=== PATIENT | female | born 1990 | race Caucasian/White ===

== ENCOUNTER 2016-07-15 | Emergency (ER) | payer OTHER | END 2016-07-15 17:46 | disposition home or self-care (01) | DX: H66.001 Acute suppurative otitis media without spontaneous rupture of ear drum, right ear (principal) ==

== ENCOUNTER 2016-10-05 03:52 | Emergency (ER) | payer OTHER ==
[2016-10-05 04:00] VITALS: BP 124/64
--- NOTE | 2016-10-05 04:02 | ED Physician Documentation ---
PD HPI MHE - Stated complaint Stated Complaint: MHE/ETOH - History obtained from History obtained from: Patient, EMS - History of Present Illness Primary symptom: Other (states that she is not homocidal or suicidal, but wants "someone to talk to". States that her made her a counseling appointment , but doesn't know when it is scheduled.) Timing - onset: How many weeks ago (several) Pain level max: 0 Pain level now: 0 Contributing factors: Other (states increased stress at home. States feels safe at home.) Similar symptoms before: Diagnosis (bipolar) Recently seen: Not recently seen - Additional information Additional information: Patient is a 25-year-old female who was brought in by the [facility] for reported suicidal ideation. She denies being suicidal. Denies ever stating she was suicidal. States that she was arguing with her laurita and he stated that she was suicidal. Review of Systems Ten Systems: 10 systems reviewed and negative Constitutional: denies: Fever, Chills Throat: denies: Sore throat Cardiac: denies: Chest pain / pressure Respiratory: denies: Cough GI: denies: Abdominal Pain, Nausea, Vomiting, Diarrhea Skin: denies: Rash Musculoskeletal: denies: Neck pain, Back pain Neurologic: denies: Focal weakness, Numbness, Confused, Altered mental status, Headache Psychiatric: denies: Depressed, Suicidal, Homicidal, Hallucinations, Delusions, Anxiety, Insomnia PD PAST MEDICAL HISTORY - Past Medical History Past Medical History: Yes Psych: Bipolar disorder - Present Medications Home Medications: Ambulatory Orders Medication Instructions Recorded Confirmed No Known Home Medications [No 10/05/16 10/05/16 Known Home Medications] - Allergies Allergies/Adverse Reactions: Allergies Allergy/AdvReac Type Severity Reaction Status Date / Time amoxicillin Allergy Anaphylaxis Verified 10/05/16 03:59 - Living Situation Living Situation: reports: With family Living Arrangement: reports: At home - Social History Does the pt smoke?: No Smoking Status: Never smoker Does the pt drink ETOH?: Yes - Family History Family history: reports: Non contributory PD ED PE NORMAL - Vitals Vital signs reviewed: Yes - General General: Alert and oriented X 3, No acute distress, Well developed/nourished - HEENT HEENT: PERRL, Moist mucous membranes - Neck Neck: Supple, no meningeal sign - Cardiac Cardiac: RRR - Respiratory Respiratory: No respiratory distress, Clear bilaterally - Abdomen Abdomen: Soft, Non tender - Derm Derm: Warm and dry - Neuro Neuro: Alert and oriented X 3 - Psych Psych: Normal mood, Normal affect Results - Vitals Vitals: Vital Signs - 24 hr 10/05/16 03:53 Temperature 36.8 C Heart Rate 104 H Respiratory 17 Rate Blood Pressure 124/64 O2 Saturation 98 Oxygen O2 Source Room air PD MEDICAL DECISION MAKING - ED course Complexity details: considered differential, d/w patient ED course: Patient is a 25-year-old female who presents to the emergency department with reported suicidal ideation during a fight tonight. She is adamantly denying any suicidal ideation and stating that she never said she was suicidal. The patient's called and stated that he does believe that she said she was suicidal, but is not sure that she actually said that. States no plan and it was during an argument. The [employer] police were also contacted and they state that they never heard her say she was suicidal. [employer] also never heard her state that she was suicidal. She is able to contract for safety here. Also discussed with Chief [place] who states that no one ever heard her voice suicidal ideations. Pt states that she has 2 children, 2 and 8 years old and just wants to spend mother's day with them at home. Patient counseled regarding signs and symptoms for which I believe and urgent re-evaluation would be necessary. Patient with good understanding of and agreement to plan and is comfortable going home at this time. Patient left the ED by taxi for home. Alert , oriented, not intoxicated. Cooperative and calm. This document was made in part using voice recognition software. While efforts are made to proofread this document, sound alike and grammatical errors may occur. Departure - Departure Disposition: Home, Self Care Clinical Impression: Encounter for medical screening examination Condition: Good Follow-Up: your,doctor within 3 days [Other] Comments: Return if you worsen. There is a 24 hour crisis line available if you need to talk to someone. Crisis Line
== END 2016-10-05 05:15 | disposition home or self-care (01) ==
LOC: ED 03:52
DX: Z00.00 Encounter for general adult medical examination without abnormal findings (principal)
CPT/HCPCS: 99283

== ENCOUNTER 2017-02-22 21:48 | Outpatient (CLI) | payer OTHER | END 2017-02-22 21:49 | disposition EMS.NT | LOC: EMS 21:48 | PROVIDERS: ATTEND Surgery | DX: R41.82 Altered mental status, unspecified (principal); R46.89 Other symptoms and signs involving appearance and behavior ==

== ENCOUNTER 2017-02-22 22:27 | Emergency (ER) | payer OTHER ==
[2017-02-22] MEDS ORDERED: LORazepam 2 MG/ML SYRINGE IM STA (22:40)
[2017-02-22] MEDS ORDERED: LORazepam 2 MG/ML SYRINGE IVP STA (22:47)
[2017-02-22] MEDS ORDERED: LORazepam 2 MG/ML SYRINGE ONE (22:47)
[2017-02-22 22:54] LABS: BASOPHILS % (AUTO) 0.6 %; EOSINOPHILS # (AUTO) 0.2 10^3/uL (0.0-0.7); EOSINOPHILS % (AUTO) 3.4 %; HCT - HEMATOCRIT 40.9 % (37.0-47.0); HGB - HEMOGLOBIN 13.9 g/dL (12.0-16.0); LYMPHOCYTES # (AUTO) 3.7 10^3/uL (1.5-3.5); LYMPHOCYTES % (AUTO) 55.8 %; MEAN CORPUSCULAR HEMOGLOBIN 32.4 pg (27.0-31.0); MEAN CORPUSCULAR HGB CONC 34.1 g/dL (32.0-36.0); MEAN PLATELET VOLUME 8.6 fL (7.9-10.8); MONOCYTES # (AUTO) 0.4 10^3/uL (0.0-1.0); MONOCYTES % (AUTO) 5.6 %; NEUTROPHILS # (AUTO) 2.3 10^3/uL (1.5-6.6); NEUTROPHILS % (AUTO) 34.6 %; RED BLOOD COUNT 4.31 10^6/uL (4.20-5.40); RED CELL DISTRIBUTION WIDTH 12.9 % (12.0-15.0); UNCORRECTED WHITE BLOOD COUNT 6.6 x10^3/uL; WHITE BLOOD COUNT 6.6 x10^3/uL (4.8-10.8)
[2017-02-22] MEDS ORDERED: SODIUM CHLORIDE 0.9% 1,000 ML IV ONE (22:59)
[2017-02-22 23:07] LABS: BILIRUBIN,URINE NEGATIVE (NEGATIVE)
[2017-02-22 23:11] LABS: ALBUMIN/GLOBULIN RATIO 1.6 (1.0-2.2); BILIRUBIN,TOTAL 0.5 mg/dL (0.2-1.0); BUN - BLOOD UREA NITROGEN 11 mg/dL (6-20); CALCIUM 8.7 mg/dL (8.5-10.3); CARBON DIOXIDE - CO2 23 mmol/L (21-32); CHLORIDE 107 mmol/L (101-111); CREATININE 0.7 mg/dL (0.4-1.0); GFR - MDRD 100 (>89); GLUCOSE 107 mg/dL (70-100); LIPASE 25 U/L (22-51); POTASSIUM 3.4 mmol/L (3.5-5.0); SALICYLATE < 6.0 mg/dL; SODIUM 140 mmol/L (135-145); TOTAL PROTEIN 7.4 g/dL (6.7-8.2)
[2017-02-22 23:13] LABS: ACETAMINOPHEN < 10 ug/mL (10-30)
[2017-02-22 23:25] LABS: UA CHARGE (STRIP ONLY) YES; UR CULTURE IF IND NOT INDICATED
[2017-02-22 23:27] LABS: HCG UR QUAL NEGATIVE
--- NOTE | 2017-02-23 01:38 | ED Physician Documentation ---
PD HPI MHE - Stated complaint Stated Complaint: MHE - Chief complaint Chief Complaint: MHE - History obtained from History obtained from: EMS, Caregiver - History of Present Illness Primary symptom: Aggressive behavior Timing - onset: Today Contributing factors: Family, Sig other Similar symptoms before: Work up / diagnostics Recently seen: Not recently seen - Additional information Additional information: Patient is a 26 year old female brought in by ems for agitation. Acccording to ems reports that states that an hour earlier the patient was acting normally then she just started acting crazy and aggressive so he called ems. He denies knowing if any drugs or alcohol were involved. Upon initial evaluation in the emergency department patient is altered and aggressive. Review of Systems Unable to obtain: Intoxicated PD PAST MEDICAL HISTORY - Past Medical History Past Medical History: Yes Respiratory: Asthma Psych: Bipolar disorder - Past Surgical History Past Surgical History: No - Present Medications Home Medications: Ambulatory Orders Medication Instructions Recorded Confirmed No Known Home Medications [No 10/05/16 10/05/16 Known Home Medications] - Allergies Allergies/Adverse Reactions: Allergies Allergy/AdvReac Type Severity Reaction Status Date / Time amoxicillin Allergy Anaphylaxis Verified 02/22/17 22:35 - Social History Does the pt smoke?: No Smoking Status: Never smoker Does the pt drink ETOH?: Yes Does the pt have substance abuse?: No - Immunizations Immunizations are current?: Yes - POLST Patient has POLST: No PD ED PE NORMAL - Vitals Vital signs reviewed: Yes - General General: Well developed/nourished - HEENT HEENT: Atraumatic, Moist mucous membranes - Neck Neck: Supple, no meningeal sign - Cardiac Cardiac: RRR, No murmur - Respiratory Respiratory: No respiratory distress, Clear bilaterally - Abdomen Abdomen: Soft, Non tender, Non distended - Derm Derm: Normal color, Warm and dry, No rash - Extremities Extremities: No deformity, Normal ROM s pain - Neuro Neuro: No motor deficit PD ED PE EXPANDED - General General: No acute distress, Unresponsive - HEENT HEENT: PERRL - GCS Eye Opening: To Pain Motor: Withdraws to Pain Verbal: Confused Total: 10 Results - Vitals Vitals: Vital Signs - 24 hr 02/22/17 02/22/17 02/23/17 22:28 22:56 00:15 Temperature 36 C L Heart Rate 112 H 95 83 Respiratory 20 18 16 Rate Blood Pressure 93/47 L 90/51 L O2 Saturation 98 95 98 02/23/17 02/23/17 02/23/17 00:39 03:00 05:09 Temperature Heart Rate 83 88 77 Respiratory 16 16 16 Rate Blood Pressure 86/50 L 96/62 O2 Saturation 100 99 99 Oxygen O2 Source Room air - Labs Labs: Laboratory Tests 02/22/17 02/22/17 02/22/17 22:35 22:35 22:40 WBC 6.6 RBC 4.31 Hgb 13.9 Hct 40.9 MCV 95.0 MCH 32.4 H MCHC 34.1 RDW 12.9 Plt Count 209 MPV 8.6 Neut # 2.3 Lymph # 3.7 H [place] # 0.4 Eos # 0.2 Baso # 0.0 Absolute Nucleated RBC 0.00 Nucleated RBC % 0.0 Sodium Potassium Chloride Carbon Dioxide Anion Gap BUN Creatinine Estimated GFR (MDRD) Glucose Lactic Acid Calcium Total Bilirubin AST ALT Alkaline Phosphatase Total Creatine Kinase Total Protein Albumin Globulin Albumin/Globulin Ratio Lipase TSH Urine Color YELLOW Urine Clarity CLEAR Urine pH 6.0 Ur Specific [place] <=1.005 <=1.005 Urine Protein NEGATIVE Urine Glucose (UA) NEGATIVE Urine Ketones NEGATIVE Urine Occult Blood NEGATIVE Urine Nitrite NEGATIVE Urine Bilirubin NEGATIVE Urine Urobilinogen 0.2 (NORMAL) Ur Leukocyte Esterase NEGATIVE Ur Microscopic Review NOT INDICATED Urine Culture Comments NOT INDICATED Urine HCG, Qual NEGATIVE Salicylates Urine Opiates Screen NEGATIVE Ur Oxycodone Screen NEGATIVE Urine Methadone Screen NEGATIVE Ur Propoxyphene Screen NEGATIVE Acetaminophen Ur Barbiturates Screen NEGATIVE Ur Tricyclics Screen NEGATIVE Ur Phencyclidine Scrn NEGATIVE Ur Amphetamine Screen NEGATIVE U Methamphetamines Scrn NEGATIVE U Benzodiazepines Scrn NEGATIVE Urine Cocaine Screen NEGATIVE U Cannabinoids Screen NEGATIVE Ethyl Alcohol 02/22/17 02/22/17 02/22/17 22:40 22:40 22:50 WBC RBC Hgb Hct MCV MCH MCHC RDW Plt Count MPV Neut # Lymph # [place] # Eos # Baso # Absolute Nucleated RBC Nucleated RBC % Sodium 140 Potassium 3.4 L Chloride 107 Carbon Dioxide 23 Anion Gap 10.0 BUN 11 Creatinine 0.7 Estimated GFR (MDRD) 100 Glucose 107 H Lactic Acid 1.5 Calcium 8.7 Total Bilirubin 0.5 AST 18 ALT 13 Alkaline Phosphatase 85 Total Creatine Kinase 115 Total Protein 7.4 Albumin 4.6 Globulin 2.8 Albumin/Globulin Ratio 1.6 Lipase 25 TSH 5.54 Urine Color Urine Clarity Urine pH Ur Specific [place] Urine Protein Urine Glucose (UA) Urine Ketones Urine Occult Blood Urine Nitrite Urine Bilirubin Urine Urobilinogen Ur Leukocyte Esterase Ur Microscopic Review Urine Culture Comments Urine HCG, Qual Salicylates < 6.0 Urine Opiates Screen Ur Oxycodone Screen Urine Methadone Screen Ur Propoxyphene Screen Acetaminophen < 10 L Ur Barbiturates Screen Ur Tricyclics Screen Ur Phencyclidine Scrn Ur Amphetamine Screen U Methamphetamines Scrn U Benzodiazepines Scrn Urine Cocaine Screen U Cannabinoids Screen Ethyl Alcohol 388.0 PD MEDICAL DECISION MAKING - ED course Complexity details: reviewed old records, reviewed results, re-evaluated patient , considered differential, d/w patient ED course: Patient was seen and examined at bedside. Patient report did not mention any tox involvement but patient appeared intoxicated and had to be placed in restraints. Urine was collected, labs were drawn patient was treated with a fluid bolus. patient was treated with ativan for aggressive behavior. When patient's labs came back she was found to have elevated etoh. Patient was treated with a second liter bolus. Patient was observed over night. In the morning patient had reached clinical sobriety. She was able to attend to conversation and ambulate without difficulty. Patient was able to call for a ride and was stable for discharge with outpatient follow up. Departure - Departure Disposition: 01 Home, Self Care Clinical Impression: Alcoholic intoxication Condition: Good Instructions: ED Alcohol Intoxication Follow-Up: primary,care provider [Other] - As Needed Comments: Your symptoms today were being caused by acute alcohol intoxication. You will need to be careful about the amount you drink. You should follow up with your doctor and develop a plan for cessation of heavy drinking. You may return to the emergency department at any time for new worsening or uncontrollable symptoms.
[2017-02-23 06:40] VITALS: BP 110/63
== END 2017-02-23 06:40 | disposition home or self-care (01) ==
LOC: EDUNIT# → ED 22:27
DX: F10.129 Alcohol abuse with intoxication, unspecified (principal); J45.909 Unspecified asthma, uncomplicated
CPT/HCPCS: 36415; 80053; 80306; 80307; 80320; 80329; 81003; 81025; 82550; 83605; 83690; 84443; 85025; 96361; 96374; 99284; 99285; J2060; 81001; 87086

== ENCOUNTER 2017-11-06 10:50 | Emergency (ER) | payer OTHER ==
[2017-11-06] MEDS ORDERED: IOPAMIDOL-300 100 ML VIAL IVP ONE ×2 (10:51→13:41)
[2017-11-06] MEDS ORDERED: DEXAMETHASONE 10 MG/ML VIAL PO STA (11:32)
[2017-11-06] MEDS ORDERED: CHERRY SYRUP 10 ML UDC PO ONE (11:47)
[2017-11-06] MEDS ORDERED: IOPAMIDOL-300 100 ML VIAL ONE (11:48)
[2017-11-06 12:26] LABS: CALCIUM 8.5 mg/dL (8.5-10.3); CREATININE 0.6 mg/dL (0.4-1.0)
[2017-11-06] MEDS ORDERED: POTASSIUM CHLORIDE 20 MEQ TABLET PO STA (12:26)
[2017-11-06] MEDS ORDERED: POTASSIUM CHLOR 10 MEQ/100 ML 10 MEQ/100 ML BAG IV ONE (12:27)
[2017-11-06 13:23] LABS: HCG UR QUAL NEGATIVE
--- NOTE | 2017-11-06 14:04 | ED Physician Documentation ---
PD HPI HEENT - Stated complaint Stated Complaint: THROAT PX/LUMP ON FACE - Chief complaint Chief Complaint: Heent - History obtained from History obtained from: Patient - History of Present Illness Timing - onset: How many days ago (8) Timing - details: Still present Location: Throat Associated symptoms: Fever, Swollen nodes Similar symptoms before: Has not had sx before - Additional information Additional information: The patient is a 27-year-old female who complains of sore throat for the past 8 days. She has noticed a "lump in her throat" and has had oropharyngeal drainage. She also reports fever, and mild epigastric discomfort. She denies cough, shortness of breath, headache, vomiting or chest pain. She has no history of similar symptoms in the past. Review of Systems Constitutional: reports: Fever, Fatigue Eyes: denies: Decreased vision Ears: denies: Ear pain, Tinnitus/ringing Nose: denies: Congestion Throat: reports: Sore throat, Swollen tonsils Cardiac: denies: Chest pain / pressure Respiratory: denies: Dyspnea, Cough GI: reports: Abdominal Pain (Mild epigastric). denies: Nausea, Vomiting : denies: Dysuria Skin: denies: Rash Musculoskeletal: reports: Neck pain (right sided). denies: Extremity pain Neurologic: denies: Headache PD PAST MEDICAL HISTORY - Past Medical History Past Medical History: Yes Respiratory: Asthma Endocrine/Autoimmune: None Psych: Bipolar disorder - Past Surgical History Past Surgical History: No - Present Medications Home Medications: Ambulatory Orders Medication Instructions Recorded Confirmed Clindamycin HCl [Clindamycin 150MG 300 mg PO QID #56 capsule 11/06/17 CAP] Ibuprofen 600 mg PO TID PRN #30 tablet 11/06/17 predniSONE [Prednisone] 20 mg PO DAILY #10 tablet 11/06/17 - Allergies Allergies/Adverse Reactions: Allergies Allergy/AdvReac Type Severity Reaction Status Date / Time amoxicillin Allergy Anaphylaxis Verified 02/22/17 22:35 - Social History Does the pt smoke?: No Smoking Status: Never smoker Does the pt drink ETOH?: Yes Does the pt have substance abuse?: No - Immunizations Immunizations are current?: Yes - POLST Patient has POLST: No PD ED PE NORMAL - Vitals Vital signs reviewed: Yes (borderline hypertension initially) - General General: Alert and oriented X 3, Well developed/nourished - HEENT HEENT: Atraumatic, EOMI, Ears normal, Other (Oropharynx is erythematous with erosions bilaterally, worse on the right than the left, with enlarged right tonsillar swelling.) - Neck Neck: Supple, no meningeal sign, Other (There is a large firm mass on the right submandibular region, tender to palpation.) - Cardiac Cardiac: RRR, No murmur - Respiratory Respiratory: No respiratory distress, Clear bilaterally - Abdomen Abdomen: Soft, Non tender - Back Back: No CVA TTP - Derm Derm: No rash - Extremities Extremities: No edema, No calf tenderness / cord - Neuro Neuro: Alert and oriented X 3, No motor deficit, Normal speech Results - Vitals Vitals: Vital Signs - 24 hr 11/06/17 11/06/17 11/06/17 11:00 13:46 16:20 Temperature 36.8 C 36.9 C Heart Rate 98 86 82 Respiratory 18 16 18 Rate Blood Pressure 130/81 H 98/66 101/77 O2 Saturation 98 100 99 Oxygen O2 Source Room air - Labs Labs: Laboratory Tests 11/06/17 11/06/17 11/06/17 10:50 12:04 12:08 Sodium 128 L Potassium 2.4 L* Chloride 87 L Carbon Dioxide 25 Anion Gap 16.0 H BUN 15 Creatinine 0.6 Estimated GFR (MDRD) 118 Glucose 123 H Calcium 8.5 Ur Specific [place] 1.025 Urine HCG, Qual NEGATIVE Group A Strep Rapid Negative - Rads (name of study) CT soft tissue neck Radiology: Prelim report reviewed, EMP read contemporaneously, See rad report (1 ) Prominent swelling, edema and enhancement of the right submandibular gland is present most consistent with infection. Expansile infiltrative tumor may be considered in the differential, but is less likely. Clinical correlation suggested. 2) No evidence for radiopaque obstructive stone associated with the inflamed appearing right submandibular gland. 3) Tubular curvilinear centrally hypodense structure along the lateral margin of the right submandibular gland, suggest localized thrombophlebitis. 4) Prominent cervical lymph nodes on the right, more likely reactive than malignant. 5)No evidence for drainable neck abscess with attention to the region of suspected infection in the right submandibular space. ) PD MEDICAL DECISION MAKING - ED course Complexity details: reviewed results, re-evaluated patient, considered differential, d/w patient ED course: The patient's presentation is most consistent with acute tonsillitis. CT soft tissue of the neck reveals no drainable abscess. Rapid strep screen is negative. Treatment in the emergency department included administration of clindamycin 600 mg IV and dexamethasone 10 mg orally. She is being discharged with prescriptions for clindamycin, prednisone, and ibuprofen. I discussed with her the diagnosis, expected course of illness, antibiotic treatment and outpatient follow-up, as well as potentially worrisome signs or symptoms that should prompt reevaluation in the emergency department. - Sepsis Event Vital Signs: Vital Signs - 24 hr 11/06/17 11/06/17 11/06/17 11:00 13:46 16:20 Temperature 36.8 C 36.9 C Heart Rate 98 86 82 Respiratory 18 16 18 Rate Blood Pressure 130/81 H 98/66 101/77 O2 Saturation 98 100 99 Oxygen O2 Source Room air Departure - Departure Disposition: 01 Home, Self Care Clinical Impression: Hypokalemia Acute tonsillitis Qualifiers: Pharyngitis/tonsillitis etiology: unspecified etiology Qualified Code(s): J03.90 - Acute tonsillitis, unspecified Condition: Stable Instructions: ED Peritonsillar Infec Abx No I andD Follow-Up: [facility] [Provider Group] Prescriptions: Clindamycin HCl [Clindamycin 150MG CAP] 300 mg PO QID #56 capsule Ibuprofen 600 mg PO TID PRN #30 tablet PRN Reason: Pain predniSONE [Prednisone] 20 mg PO DAILY #10 tablet Comments: Gargle with cool liquids. Take clindamycin 4 times daily as prescribed. Take prednisone once daily as prescribed. You can use Tylenol or ibuprofen as needed for fever or discomfort. Follow up with your primary physician within 1 week. Call to schedule appointment. Return to the emergency department if you develop increasing difficulty swallowing, or otherwise worsening symptoms. Discharge Date/Time: 11/06/17 16:20
[2017-11-06] MEDS ORDERED: MAG HYDROX/AL HYDROX/SIMETH 30 ML UDC PO STA (14:22)
[2017-11-06] MEDS ORDERED: LIDOCAINE VISCOUS 2% 15 ML UDC MM STA (14:22)
--- NOTE | 2017-11-06 14:37 | CT Report ---
Procedure Date: 11/06/2017 Accession Number: [id number] / [id number] Procedure: CT - Neck Soft Tissue W/ CPT Code: FULL RESULT: EXAM: CT SOFT TISSUE NECK WITH CONTRAST. EXAM DATE: 11/06/2017 01:38 PM. HISTORY: Right side neck swelling. COMPARISONS: None. TECHNIQUE: Routine soft tissue neck CT protocol. Reconstructions: Coronal and sagittal. IV contrast: 80 mL Isovue 300. In accordance with CT protocol optimization, one or more of the following dose reduction techniques were utilized for this exam: automated exposure control, adjustment of mA and/or KV based on patient size, or use of iterative reconstructive technique. FINDINGS: Prominent abnormal asymmetric swelling, edema and enhancement of the right submandibular gland. Moderately prominent stranding, swelling and edema in the right submandibular space around the abnormal submandibular gland and to a lesser degree in the adjacent soft tissues in the neck. There is probably also additional amorphous swelling and edema medial to the right submandibular space, along the upper right lateral wall of the pharynx which creates the appearance of lateral right peritonsillar fullness, edema and mild fat stranding. A primary pharyngeal process is considered less likely. Cervical lymph node prominence in the right neck is present, likely reactive. The largest right level II node is 10 x 15 mm. The next largest is 9 x 15 mm. No evidence for drainable abscess. No evidence for radiopaque obstructive stone of the right submandibular gland or duct. Along the lateral margin of the right submandibular gland there is a tubular curvilinear centrally hypodense structure with mildly enhancing chatman. This has the appearance of a thrombosed vein with an inflamed wall. Normal appearance of the parotid glands, left submandibular gland and thyroid gland. Nonspecific fullness of the palatine tonsils and lingual tonsils. This may represent incidental tonsillar hyperplasia. No significant adenoid enlargement. Otherwise unremarkable appearance of the pharynx and larynx. Normal epiglottis. Normal retropharyngeal space. No adenopathy in the left neck. Left maxillary sinus retention cyst. No other evidence for acute sinus or mastoid disease. Unremarkable appearance of the orbits. No intracranial focal lesion. Unremarkable appearance of the internal jugular veins and cervical carotid arteries. IMPRESSION: 1. Prominent swelling, edema and enhancement of the right submandibular gland is present most consistent with infection. Expansile infiltrative tumor may be considered in the differential but is less likely, clinical correlation suggested. 2. No evidence for radiopaque obstructive stone associated with the inflamed-appearing right submandibular gland. 3. Tubular curvilinear centrally hypodense structure along the lateral margin of the right submandibular gland suggests localized thrombophlebitis. 4. Prominent cervical lymph nodes on the right, more likely reactive than malignant. 5. No evidence for drainable neck access with attention to the region of suspected infection in the right submandibular space. 6. Nonspecific prominence of the palatine and lingual tonsils, more likely hyperplasia than tumor. RADIA
[2017-11-06] MEDS ORDERED: CLINDAMYCIN 600 MG/50 ML 50 ML IV ONE (14:45)
[2017-11-06] MEDS ORDERED: CLINDAMYCIN 600 MG/50 ML 50 ML IV STA (14:48)
[2017-11-06 16:21] VITALS: BP 101/77
== END 2017-11-06 16:20 | disposition home or self-care (01) ==
LOC: ED 10:50
DX: J03.90 Acute tonsillitis, unspecified (principal); E87.6 Hypokalemia
CPT/HCPCS: 36415; 70491; 80048; 81025; 87070; 87430; 96365; 96367; 99283; 99284; A9270; Q9967

== ENCOUNTER 2017-12-29 08:31 | Emergency (ER) | payer OTHER ==
[2017-12-29 09:12] LABS: BASOPHILS % (AUTO) 0.6 %; EOSINOPHILS % (AUTO) 0.5 %; HGB - HEMOGLOBIN 13.3 g/dL (12.0-16.0); LYMPHOCYTES # (AUTO) 1.5 10^3/uL (1.5-3.5); MEAN CORPUSCULAR HEMOGLOBIN 32.3 pg (27.0-31.0); MEAN CORPUSCULAR HGB CONC 34.4 g/dL (32.0-36.0); MEAN PLATELET VOLUME 8.2 fL (7.9-10.8); MONOCYTES # (AUTO) 0.3 10^3/uL (0.0-1.0); MONOCYTES % (AUTO) 5.5 %; NEUTROPHILS # (AUTO) 3.6 10^3/uL (1.5-6.6); NEUTROPHILS % (AUTO) 66.4 %; PLT - PLATELET COUNT 217 10^3/uL (130-450); RED BLOOD COUNT 4.11 10^6/uL (4.20-5.40); RED CELL DISTRIBUTION WIDTH 13.4 % (12.0-15.0); WHITE BLOOD COUNT 5.5 x10^3/uL (4.8-10.8)
--- NOTE | 2017-12-29 09:16 | ED Physician Documentation ---
History of Present Illness - Stated complaint Stated Complaint: MHE/OD - Chief complaint Chief Complaint: MHE - Additonal information Additional information: hx from pt 27 female states she #28 20mg adderall at 1 AM also drank a [place] (caffeinated alcohol) evasive re whether suicide attempt she denies other med OD denies ilelgal drugs denies cutting etc prior suicide attempts by OD and cutting Review of Systems Constitutional: denies: Fever Throat: denies: Sore throat Cardiac: reports: Palpitations. denies: Chest pain / pressure Respiratory: denies: Dyspnea GI: denies: Abdominal Pain, Nausea, Vomiting Neurologic: denies: Altered mental status Psychiatric: reports: Suicidal Endocrine: denies: Easy bruising / bleeding Immunocompromised: denies: Immunocompromised PD PAST MEDICAL HISTORY - Past Medical History Past Medical History: Yes Respiratory: Asthma Endocrine/Autoimmune: None Psych: Bipolar disorder - Past Surgical History Past Surgical History: No - Present Medications Home Medications: Ambulatory Orders Medication Instructions Recorded Confirmed Dextroamphetamine/Amphetamine 20 mg 12/29/17 [Adderall 20 mg Tablet] - Allergies Allergies/Adverse Reactions: Allergies Allergy/AdvReac Type Severity Reaction Status Date / Time amoxicillin Allergy Anaphylaxis Verified 02/22/17 22:35 - Social History Does the pt smoke?: No Smoking Status: Never smoker Does the pt drink ETOH?: Yes Does the pt have substance abuse?: No - Immunizations Immunizations are current?: Yes - POLST Patient has POLST: No PD ED PE NORMAL - Vitals Vital signs reviewed: Yes - Cardiac Cardiac: RRR - Respiratory Respiratory: No respiratory distress, Clear bilaterally - Abdomen Abdomen: Soft, Non tender - Neuro Neuro: Alert and oriented X 3, provider relations rep 2-12 intact, No motor deficit, Normal speech Eye Opening: Spontaneous Motor: Obeys Commands Verbal: Oriented GCS Score: 15 - Psych Psych: Other (very restless and agitated) Results - Vitals Vitals: Vital Signs - 24 hr 12/29/17 12/29/17 12/29/17 08:36 09:09 11:00 Temperature 37.0 C Heart Rate 135 H 122 H 116 H Respiratory 18 23 14 Rate Blood Pressure 141/93 H 128/91 H 134/84 H O2 Saturation 100 100 100 12/29/17 12:15 Temperature Heart Rate 112 H Respiratory 19 Rate Blood Pressure 139/98 H O2 Saturation 100 Oxygen O2 Source Room air - EKG (time done) 0901 Rate: Rate (enter#) (123) Rhythm: Sinus tachycardia Intervals: Normal ND Ischemia: Normal ST segments Other comments: Other comments (borderline QT) - Labs Labs: Laboratory Tests 12/29/17 12/29/17 12/29/17 09:00 09:00 09:05 WBC 5.5 RBC 4.11 L Hgb 13.3 Hct 38.7 MCV 94.0 MCH 32.3 H MCHC 34.4 RDW 13.4 Plt Count 217 MPV 8.2 Neut # (Auto) 3.6 Lymph # (Auto) 1.5 [place] # (Auto) 0.3 Eos # (Auto) 0.0 Baso # (Auto) 0.0 Absolute Nucleated RBC 0.00 Nucleated RBC % 0.0 Sodium Potassium Chloride Carbon Dioxide Anion Gap BUN Creatinine Estimated GFR (MDRD) Glucose Calcium Magnesium Total Bilirubin AST ALT Alkaline Phosphatase Total Creatine Kinase Troponin I Total Protein Albumin Globulin Albumin/Globulin Ratio Lipase TSH Urine Color YELLOW Urine Clarity CLEAR Urine pH 7.0 Ur Specific [place] 1.010 Urine Protein NEGATIVE Urine Glucose (UA) NEGATIVE Urine Ketones NEGATIVE Urine Occult Blood NEGATIVE Urine Nitrite NEGATIVE Urine Bilirubin NEGATIVE Urine Urobilinogen 0.2 (NORMAL) Ur Leukocyte Esterase NEGATIVE Ur Microscopic Review NOT INDICATED Urine Culture Comments NOT INDICATED Urine HCG, Qual NEGATIVE Salicylates Urine Opiates Screen NEGATIVE Ur Oxycodone Screen NEGATIVE Urine Methadone Screen NEGATIVE Ur Propoxyphene Screen NEGATIVE Acetaminophen Ur Barbiturates Screen NEGATIVE Ur Tricyclics Screen NEGATIVE Ur Phencyclidine Scrn NEGATIVE Ur Amphetamine Screen POSITIVE H U Methamphetamines Scrn NEGATIVE U Benzodiazepines Scrn NEGATIVE Urine Cocaine Screen NEGATIVE U Cannabinoids Screen NEGATIVE Ethyl Alcohol 12/29/17 12/29/17 12/29/17 09:05 09:05 09:05 WBC RBC Hgb Hct MCV MCH MCHC RDW Plt Count MPV Neut # (Auto) Lymph # (Auto) [place] # (Auto) Eos # (Auto) Baso # (Auto) Absolute Nucleated RBC Nucleated RBC % Sodium 138 Potassium 3.5 Chloride 105 Carbon Dioxide 24 Anion Gap 9.0 BUN 8 Creatinine 0.5 Estimated GFR (MDRD) 146 Glucose 100 Calcium 8.7 Magnesium 1.8 Total Bilirubin 0.7 AST 23 ALT 17 Alkaline Phosphatase 49 Total Creatine Kinase Troponin I Total Protein 7.5 Albumin 4.1 Globulin 3.4 Albumin/Globulin Ratio 1.2 Lipase 21 L TSH 3.42 Urine Color Urine Clarity Urine pH Ur Specific [place] Urine Protein Urine Glucose (UA) Urine Ketones Urine Occult Blood Urine Nitrite Urine Bilirubin Urine Urobilinogen Ur Leukocyte Esterase Ur Microscopic Review Urine Culture Comments Urine HCG, Qual Salicylates < 6.0 Urine Opiates Screen Ur Oxycodone Screen Urine Methadone Screen Ur Propoxyphene Screen Acetaminophen < 10 L Ur Barbiturates Screen Ur Tricyclics Screen Ur Phencyclidine Scrn Ur Amphetamine Screen U Methamphetamines Scrn U Benzodiazepines Scrn Urine Cocaine Screen U Cannabinoids Screen Ethyl Alcohol 117.0 12/29/17 12/29/17 12/29/17 09:05 09:05 11:37 WBC RBC Hgb Hct MCV MCH MCHC RDW Plt Count MPV Neut # (Auto) Lymph # (Auto) [place] # (Auto) Eos # (Auto) Baso # (Auto) Absolute Nucleated RBC Nucleated RBC % Sodium Potassium Chloride Carbon Dioxide Anion Gap BUN Creatinine Estimated GFR (MDRD) Glucose Calcium Magnesium Total Bilirubin AST ALT Alkaline Phosphatase Total Creatine Kinase 126 Troponin I < 0.04 Total Protein Albumin Globulin Albumin/Globulin Ratio Lipase TSH Urine Color Urine Clarity Urine pH Ur Specific [place] Urine Protein Urine Glucose (UA) Urine Ketones Urine Occult Blood Urine Nitrite Urine Bilirubin Urine Urobilinogen Ur Leukocyte Esterase Ur Microscopic Review Urine Culture Comments Urine HCG, Qual Salicylates Urine Opiates Screen Ur Oxycodone Screen Urine Methadone Screen Ur Propoxyphene Screen Acetaminophen Ur Barbiturates Screen Ur Tricyclics Screen Ur Phencyclidine Scrn Ur Amphetamine Screen U Methamphetamines Scrn U Benzodiazepines Scrn Urine Cocaine Screen U Cannabinoids Screen Ethyl Alcohol 63.1 PD MEDICAL DECISION MAKING - ED course ED course: spoke to Poison control tachy HTN agitation seizures psychosis dyskinesia hyperactivity flushing GI distress, palp CP hypervent, confusion, hyperthermia, dehydration tx is supportive, benzos, IVF if needed check usual labs plus CK and trop monitor VS etc long half life 7-34 hr - est 12 hr of sx per poison control toxic OD is 0.5 mg/kg, and pt took approx 10mg/kg 12 hr post ingestion, BA < 80, HR coming down, other tox screen neg, pt medicaly cleared SUZI came to see pt at 1330 seen by SUZI who feels pt is safe top in home, she has contracted for safety, she has family, she is future oriented, [place], she has a counseling appt and SAMANTHA will call her for fup - see her note - Sepsis Event Vital Signs: Vital Signs - 24 hr 12/29/17 12/29/17 12/29/17 08:36 09:09 11:00 Temperature 37.0 C Heart Rate 135 H 122 H 116 H Respiratory 18 23 14 Rate Blood Pressure 141/93 H 128/91 H 134/84 H O2 Saturation 100 100 100 12/29/17 12:15 Temperature Heart Rate 112 H Respiratory 19 Rate Blood Pressure 139/98 H O2 Saturation 100 Oxygen O2 Source Room air Departure - Departure Disposition: Home, Self Care Clinical Impression: Overdose Qualifiers: Encounter type: initial encounter Injury intent: intentional self-harm Qualified Code(s): T50.902A - Poisoning by unspecified drugs, medicaments and biological substances, intentional self-harm, initial encounter Condition: Fair Instructions: ED Overdose Intentional Comments: This was a dangerous and serious overdose. Thankfully no buttermilk drier operator harm was caused. Your met with our social sciences research scientist / mental health specialist and she feels you are safe to go home The crisis line will call you to check in on you - be sure to answer the phone Please see your personal counselor as soon as possible. Stay with a responsible adult who can watch you for the next few days Avoid all stimulants Return if worse
[2017-12-29] MEDS ORDERED: SODIUM CHLORIDE 0.9% 2,000 ML IV ONE (09:21)
[2017-12-29] MEDS ORDERED: LORazepam 2 MG/ML VIAL IVP STA (09:22)
[2017-12-29 09:27] LABS: ACETAMINOPHEN < 10 ug/mL (10-30); ALBUMIN 4.1 g/dL (3.2-5.5); ALBUMIN/GLOBULIN RATIO 1.2 (1.0-2.2); ALKALINE PHOSPHATASE 49 IU/L (42-121); ALT ALANINE AMINOTRANSFERASE 17 IU/L (10-60); AST ASPARTATE AMINOTRANSFERASE 23 IU/L (10-42); BILIRUBIN,TOTAL 0.7 mg/dL (0.2-1.0); BUN - BLOOD UREA NITROGEN 8 mg/dL (6-20); CALCIUM 8.7 mg/dL (8.5-10.3); CARBON DIOXIDE - CO2 24 mmol/L (21-32); CHLORIDE 105 mmol/L (101-111); CREATININE 0.5 mg/dL (0.4-1.0); GFR - MDRD 146 (>89); GLUCOSE 100 mg/dL (70-100); LIPASE 21 U/L (22-51); SALICYLATE < 6.0 mg/dL; SODIUM 138 mmol/L (135-145); TOTAL PROTEIN 7.5 g/dL (6.7-8.2)
[2017-12-29 09:45] LABS: MUDS CUTOFF CONCENTRATIONS CUTOFF CONC BELOW:
[2017-12-29 09:48] LABS: BILIRUBIN,URINE NEGATIVE (NEGATIVE); GLUCOSE, URINE (UA) NEGATIVE (NEGATIVE); KETONES,URINE (UA) NEGATIVE (NEGATIVE); LEUKOCYTE ESTERASE, URINE NEGATIVE (NEGATIVE); NITRITE,URINE NEGATIVE (NEGATIVE); OCCULT BLOOD,URINE NEGATIVE (NEGATIVE); PROTEIN,URINE NEGATIVE (NEGATIVE); UROBILINOGEN,URINE 0.2 (NORMAL) E.U./dL (NORMAL)
[2017-12-29 09:51] LABS: CLARITY,URINE CLEAR (CLEAR)
[2017-12-29 09:55] LABS: HCG UR QUAL NEGATIVE
[2017-12-29 10:00] LABS: AMPHETAMINE SCREEN,URINE POSITIVE (NEGATIVE); COCAINE SCREEN URINE NEGATIVE (NEGATIVE); METHAMPHETAMINES SCREEN, URINE NEGATIVE (NEGATIVE); OPIATE SCREEN, URINE NEGATIVE (NEGATIVE)
[2017-12-29 10:01] LABS: BENZODIAZEPINES SCREEN, URINE NEGATIVE (NEGATIVE); METHADONE SCREEN, URINE NEGATIVE (NEGATIVE); OXYCODONE SCREEN, URINE NEGATIVE (NEGATIVE); PROPOXYPHENE SCREEN, URINE NEGATIVE (NEGATIVE); TRICYCLIC ANTIDEPRESSANT,URINE NEGATIVE (NEGATIVE)
[2017-12-29 15:08] VITALS: BP 126/96
== END 2017-12-29 15:07 | disposition home or self-care (01) ==
LOC: ED 08:31
DX: T43.621A Poisoning by amphetamines, accidental (unintentional), initial encounter (principal); R00.0 Tachycardia, unspecified
CPT/HCPCS: 36415; 80053; 80306; 80307; 80320; 80329; 81003; 81025; 82550; 83690; 83735; 84443; 84484; 85025; 93005; 96374; 99284; J2060; 81001; 87086

== ENCOUNTER 2020-06-18 08:00 | Outpatient (CLI) | payer OTHER ==
[2020-06-19 10:24] LABS: BILIRUBIN,URINE NEGATIVE (NEGATIVE); GLUCOSE, URINE (UA) NEGATIVE (NEGATIVE); KETONES,URINE (UA) NEGATIVE (NEGATIVE); LEUKOCYTE ESTERASE, URINE NEGATIVE (NEGATIVE); NITRITE,URINE NEGATIVE (NEGATIVE); OCCULT BLOOD,URINE NEGATIVE (NEGATIVE); PROTEIN,URINE NEGATIVE (NEGATIVE); UROBILINOGEN,URINE 0.2 (NORMAL) E.U./dL (NORMAL)
[2020-06-19 10:25] LABS: CLARITY,URINE CLEAR (CLEAR)
[2020-06-19 10:33] LABS: MUDS CUTOFF CONCENTRATIONS CUTOFF CONC BELOW:
[2020-06-19 10:34] LABS: AMPHETAMINE SCREEN,URINE POSITIVE (NEGATIVE); BENZODIAZEPINES SCREEN, URINE NEGATIVE (NEGATIVE); COCAINE SCREEN URINE NEGATIVE (NEGATIVE); METHADONE SCREEN, URINE NEGATIVE (NEGATIVE); METHAMPHETAMINES SCREEN, URINE NEGATIVE (NEGATIVE); OPIATE SCREEN, URINE NEGATIVE (NEGATIVE); OXYCODONE SCREEN, URINE NEGATIVE (NEGATIVE); PROPOXYPHENE SCREEN, URINE NEGATIVE (NEGATIVE); TRICYCLIC ANTIDEPRESSANT,URINE NEGATIVE (NEGATIVE)
[2020-06-19 10:39] LABS: RBC,URINE 0-5 /HPF (0-5)
[2020-06-19 10:40] LABS: BACTERIA,URINE Rare /HPF (None Seen); CRYSTALS,URINE 3-5 Calcium Oxalate /LPF; SQUAMOUS EPITHELIAL CELL,UR FEW Squamous (<= Few)
== END 2020-06-18 23:59 | disposition home or self-care (01) ==
LOC: LAB.R 08:00
PROVIDERS: ATTEND Obstetrics & Gynecology
DX: Z34.90 Encounter for supervision of normal pregnancy, unspecified, unspecified trimester (principal)
CPT/HCPCS: 80306; 81001; 87086

== ENCOUNTER 2020-07-04 12:18 | Outpatient (CLI) | payer OTHER ==
--- NOTE | 2020-07-04 15:38 | Ultrasound Report ---
PROCEDURE: OB 14+ Weeks INDICATIONS: POS PREG OUTSIDE/PRIOR DATING DATA: Last menstrual period (LMP): 04/04/2020. LMP-based estimated date of delivery (KELVIN): 01/09/2021. First dating scan (date and location): 07/04/2020 at [facility]. Estimated date of delivery (KELVIN) from first dating scan: 12/31/2020. TECHNIQUE: Real-time scanning was performed of the fetus, with image documentation and biometric measurements. Endovaginal scanning: Not performed COMPARISON: None. FINDINGS: General: A single living intrauterine gestation is present. Presentation: Variable Placenta: Placental position is anterior, without previa. Amniotic fluid index: n.a. heart rate: 149 beats per minute. Maternal cervical canal: Closed. biometrics: Biparietal diameter: 14 weeks 2 days Head circumference: 14 weeks 4 days Abdominal circumference: 14 weeks 5 days Femur length: 14 weeks 1 day Estimated gestational age from initial scan: not applicable. Composite gestational age from present scan: 14 weeks 2 days Estimated weight and percentile: n.a. Measurement variability for biometric dating: +/- 10 days from 12-20 weeks gestation, +/- 2 weeks fro m 20-30 weeks gestation, +/- 3 weeks for 30 weeks gestation or later. Anatomic survey: Not performed. Maternal ovaries are grossly normal. IMPRESSION: 1. A single living intrauterine with the estimated gestational age 14 weeks 2 days based on the current ultrasound, corresponding to ultrasound KELVIN 12/31/2020. 2. Recommend anatomic survey at ~20 weeks of gestational age. Reviewed by: López Yi MD on 07/04/2020 3:37 PM PST Approved by: López Yi MD on 07/04/2020 3:37 PM PST Station ID: [id number]
== END 2020-07-04 12:19 | disposition home or self-care (01) ==
LOC: DI 12:18
PROVIDERS: ATTEND Advanced Practice Midwife
DX: Z34.91 Encounter for supervision of normal pregnancy, unspecified, first trimester (principal)

== ENCOUNTER 2020-12-22 13:29 | Outpatient (CLI) | payer OTHER | END 2020-12-22 13:30 | disposition critical access hospital (66) | LOC: EMS 13:29 | DX: O80 Encounter for full-term uncomplicated delivery (principal); Z3A.00 Weeks of gestation of pregnancy not specified | CPT/HCPCS: A0425; A0427 ==

== ENCOUNTER 2020-12-22 13:58 | Inpatient (IN) | payer OTHER ==
[2020-12-22] MEDS ORDERED: OXYTOCIN 10 UNIT/ML VIAL IM ONE (14:08)
[2020-12-22] MEDS: OXYTOCIN/SODIUM CHLORIDE 500 ML IV PRN ×2 (14:18→14:50)
--- NOTE | 2020-12-22 14:25 | DELIVERY NOTE ---
Delivery Note - Infant Delivery Method Infant Delivery Method: positive: Other (Patient delivered in the ambulance prior to arrival at [facility].) - Nuchal Cord Nuchal Cord: positive: None - Anesthetic Anesthetic: positive: Lidocaine - 1% plain - Amniotic Fluid Description Amniotic Fluid Description: positive: Clear - Episiotomy Type Episiotomy Type: positive: None - Laceration Laceration: positive: 2nd degree, Perineal - Suture Suture Type: positive: Vicryl Suture Size: positive: 2-0 - Delivery Outcome Delivery Outcome: positive: Livebirth - [place] sex: positive: Male : was born in ambulance on the way to the hospital. - Cord Cord: positive: 3 vessels - Placenta Placenta: positive: Intact, Spontaneous - Estimated Blood Loss Estimated Blood Loss (in cc): 300 - Post Delivery Events Post Delivery Events: positive: No post delivery events (30 yo at 37 4/7 presented via ambulance to [facility]. Patient had delivered spontaneously, vaginally in the Ambulance. Living male was doing good on arrival to ambulance bay. Mother brought to labor and delivery. Pitocin, 10mg IM given.) - Delivery Comments (Free Text/Narrative) Delivery Comments (Free Text/Narrative): 30 you with care at [facility] was brought to [facility] by Ambulance. Patient had a in the Ambulance on the way to the hospital. Patient had a living male that was doing well and resting on her chest on arrival to hospital. Patient was brought to labor and delivery and placed on bed. Pitocin 10mg IM was given. Cord was clamped times two and cut. Living male with Apgars of 9/9. Infnat weight was 7#15oz. IV was started and Pitocin IV was started. Placenta delivered spontaneously, Intact, THANG. Cervix inspected and found to have ecchymosis from 9-12. No lacerations or tears. There was a second degree laceration to right of midline on the perineum. 1%Lidocaine was injected throughout the laceration. 2-0 Vicryl in 2 layer running fashion was utilized to repair the laceration. Good hemostasis and approximation were obtained. Fundal massage was performed and the uterus was firm and below the Umbilicus. EBL is 300cc. Mother and are in stable condition.Sponge and needle counts are correct.
[2020-12-22 14:40] LABS: BASOPHILS % (AUTO) 0.5 %; EOSINOPHILS # (AUTO) 0.1 10^3/uL (0.0-0.7); EOSINOPHILS % (AUTO) 1.5 %; HCT - HEMATOCRIT 31.3 % (37.0-47.0); HGB - HEMOGLOBIN 9.7 g/dL (12.0-16.0); LYMPHOCYTES # (AUTO) 2.2 10^3/uL (1.5-3.5); LYMPHOCYTES % (AUTO) 26.4 %; MEAN CORPUSCULAR HEMOGLOBIN 23.9 pg (27.0-31.0); MEAN CORPUSCULAR VOLUME 77.1 fL (81.0-99.0); MEAN PLATELET VOLUME 12.3 fL (7.9-10.8); MONOCYTES # (AUTO) 0.3 10^3/uL (0.0-1.0); MONOCYTES % (AUTO) 3.8 %; NEUTROPHILS # (AUTO) 5.5 10^3/uL (1.5-6.6); NEUTROPHILS % (AUTO) 67.2 %; PLT - PLATELET COUNT 209 10^3/uL (130-450); RED BLOOD COUNT 4.06 10^6/uL (4.20-5.40); RED CELL DISTRIBUTION WIDTH 14.9 % (12.0-15.0); WHITE BLOOD COUNT 8.2 x10^3/uL (4.8-10.8)
[2020-12-22 14:51] LABS: MUDS CUTOFF CONCENTRATIONS CUTOFF CONC BELOW:
[2020-12-22] MEDS ORDERED: LACTATED RINGERS 1,000 ML IV SCH (15:00)
[2020-12-22 15:10] LABS: AMPHETAMINE SCREEN,URINE NEGATIVE (NEGATIVE); BARBITURATE SCREEN,UR NEGATIVE (NEGATIVE); BENZODIAZEPINES SCREEN, URINE NEGATIVE (NEGATIVE); COCAINE SCREEN URINE NEGATIVE (NEGATIVE); METHADONE SCREEN, URINE NEGATIVE (NEGATIVE); METHAMPHETAMINES SCREEN, URINE NEGATIVE (NEGATIVE); OPIATE SCREEN, URINE NEGATIVE (NEGATIVE); OXYCODONE SCREEN, URINE NEGATIVE (NEGATIVE); PROPOXYPHENE SCREEN, URINE NEGATIVE (NEGATIVE); THC CANNABINOID SCREEN, URINE NEGATIVE (NEGATIVE); TRICYCLIC ANTIDEPRESSANT,URINE POSITIVE (NEGATIVE)
[2020-12-22] MEDS: ACETAMINOPHEN 500 MG TABLET PO SCH ×2 (15:16→23:17)
[2020-12-22] MEDS: IBUPROFEN 600 MG TABLET PO SCH ×2 (15:16→21:07)
--- NOTE | 2020-12-22 15:20 | HISTORY & PHYSICAL EXAMINATION ---
Admit History - Visit Reason Visit Reason: Other (Patient admitted post vaginal delivery in the ambulance on the way to hospital.) - : 3 Parity: 2 Premature: 0 Ectopic: 0 : 0 Care: positive: IW ( care in [place]. Was planning delivery in [place].) Risk/History: positive: None Complications This : positive: None Smoking Status: Never smoker - Mother's Labs Mother's Blood Type: positive: Unknown Mother's RH: positive: Unknown GBS: positive: Group B Step Negative (Patient doesn't know her blood type. Does not know if she is + or negative.) Meds/Allgy - Home Medications Home Medications: Ambulatory Orders Medication Instructions Recorded Confirmed Dextroamphetamine/Amphetamine 20 mg 12/29/17 [Adderall 20 mg Tablet] - Allergies Allergies/Adverse Reactions: Allergies Allergy/AdvReac Type Severity Reaction Status Date / Time amoxicillin Allergy Anaphylaxis Verified 02/22/17 22:35 Review of Systems - Constitutional Constitutional: denies: Fatigue, Fever, Chills - Cardiovascular Cariovascular: denies: Irregular heart rate, Palpitations - Respiratory Respiratory: denies: Cough, Sputum production - Gastrointestinal Gastrointestinal: denies: Abdominal pain - Genitourinary Genitourinary: denies: Dysuria, Frequency - Psychiatric Psychiatric: denies: Depression, Anxiety Physical - Abdominal Exam Vital Signs: Temp Pulse Resp BP Pulse Ox 98.4 F 101 H 18 115/69 98 12/22/20 14:53 12/22/20 15:10 12/22/20 15:10 12/22/20 15:10 12/22/20 15:10 Contraction Frequency (min/apart): Patient delivered in ambulance prior to arrival at hospital. - Presentation Presentation: positive: Vertex - Vaginal Exam Membranes: positive: Membranes ruptured (Patient had in ambulance on the way to hospital. Living male with Apgars of 9/9) Plan for Labor - Plan For Labor Plan for Labor: P-Clamp and cut cord. Deliver placenta. Repair Perineal laceration. Routine care. Toxicology screen.
[2020-12-22] MEDS: DOCUSATE SODIUM 100 MG CAPSULE PO SCH (21:06)
[2020-12-23] MEDS: IBUPROFEN 600 MG TABLET PO SCH ×2 (03:22→09:50)
[2020-12-23] MEDS: ACETAMINOPHEN 500 MG TABLET PO SCH ×2 (06:56→14:27)
[2020-12-23] MEDS: DOCUSATE SODIUM 100 MG CAPSULE PO SCH (09:51)
--- NOTE | 2020-12-23 10:51 | DISCHARGE SUMMARY ---
Discharge Summary Admit Date: 12/22/20 Discharge Date: 12/23/20 Discharging Provider: Diego Pool DO Condition at Discharge: Good Discharge Disposition: 01 Home, Self Care - DIAGNOSES Admission Diagnoses: in ambulance Term - HPI History of Present Illness: 30yo at 37 4/7 arrived via ambulance after in the ambulance of living male with Apgars of 9/9. Patient had care in [place] and was planning to deliver at [facility] in [place]. Patient states her "water broke" in the ambulance and the baby was right there. care was uncomplicated. - CONSULTS | PROCEDURES Procedures: Delivery of placenta. Repair of 2nd degree perineal laceration. care. - HOSPITAL COURSE Hospital Course: Patient was admitted from ambulance by to Labor and Delivery. Male infant had been born on the way to [facility]. Male infant weight 7#15oz. Mother placed in labor and delivery Pitocin 10mg given IM and IV started. Cord clamped times two and cut. Cord blood collected for lab. Placenta delivered spontaneously, intact, THANG. @nd degree laceration to perineum was repaired. Patient tolerated procedure well. Patient has had routine course. Patient is ambulating, urinating and tolerating a regular diet without difficulty. Patient desires to come home today at 24 hour ash. - ALLERGIES Allergies/Adverse Reactions: Allergies Allergy/AdvReac Type Severity Reaction Status Date / Time amoxicillin Allergy Anaphylaxis Verified 02/22/17 22:35 - MEDICATIONS Home Medications: Ambulatory Orders Medication Instructions Recorded Confirmed Dextroamphetamine/Amphetamine 20 mg 12/29/17 [Adderall 20 mg Tablet] - PHYSICAL EXAM AT DISCHARGE General Appearance: positive: No acute distress Eyes Bilateral: positive: Normal inspection Respiratory: positive: No respiratory distress, Breath sounds nml Cardiovascular: positive: Regular rate & rhythm Abdomen: positive: Non-tender, Nml bowel sounds, Other (Fundus is firm and below the umbilicus. Non-tender to palpation.) Extremities: positive: Non-tender, Full ROM, No pedal edema Neurologic/Psychiatric: positive: Oriented x3, Mood/affect nml Reflexes: Knee (R): 2+ - LABS Result Diagrams: 12/22/20 14:00 - QUALITY (Female Hip Fx Only) Was patient sent home on osteoporosis medication?: No - FOLLOW UP Follow Up: visit at OB clinic in one week. - TIME SPENT Time Spent in Discharge (Minutes): 30
--- NOTE | 2020-12-23 11:44 | HISTORY & PHYSICAL EXAMINATION ---
Admit History - : 1 Parity: 0 Premature: 0 Ectopic: 0 : 0 Risk/History: positive: None Complications This : positive: None, Other (2017 had issues with Maternal drug use.) Smoking Status: Never smoker - Mother's Labs Mother's Blood Type: positive: O Mother's RH: positive: Positive GBS: positive: Group B Step Negative Rubella Status: positive: Non-immune Meds/Allgy - Home Medications Home Medications: Ambulatory Orders Medication Instructions Recorded Confirmed Dextroamphetamine/Amphetamine 20 mg 12/29/17 [Adderall 20 mg Tablet] - Allergies Allergies/Adverse Reactions: Allergies Allergy/AdvReac Type Severity Reaction Status Date / Time amoxicillin Allergy Anaphylaxis Verified 02/22/17 22:35 Review of Systems - Constitutional Constitutional: denies: Fatigue, Fever, Chills - Cardiovascular Cariovascular: denies: Irregular heart rate, Palpitations - Respiratory Respiratory: denies: Cough, Sputum production, Wheezing - Gastrointestinal Gastrointestinal: denies: Abdominal pain, Constipation - Neurological Neurological: denies: General weakness - Psychiatric Psychiatric: reports: Depression (History of Depression in the past. History of Bulemia in the past.) - Hematologic/Lymphatic Hematologic/Lymphatic: reports: Anemia (Anemia with in third trimester) Physical - Abdominal Exam Vital Signs: Temp Pulse Resp BP Pulse Ox 97.7 F 85 16 107/62 100 12/23/20 07:54 12/23/20 07:54 12/23/20 07:54 12/23/20 07:54 12/23/20 07:54
[2020-12-23 11:52] VITALS: BP 111/71
[2020-12-23] MEDS ORDERED: MEASLES,MUMPS & RUBELLA VACC 0.5 ML VIAL SUBQ ONE ×2 (15:00→15:23)
== END 2020-12-23 16:00 | disposition home or self-care (01) | DRG 769 ==
LOC: WFO 13:58 → FBP 14:00 → WFO 14:21 → FBP 14:22
PROVIDERS: ADMIT Obstetrics & Gynecology; ATTEND Obstetrics & Gynecology
PROC: 10E0XZZ Delivery of Products of Conception, External Approach (ICD-10-PCS; principal; 2020-12-22)
PROC: 0KQM0ZZ Repair Perineum Muscle, Open Approach (ICD-10-PCS; 2020-12-22)
DX: O70.1 Second degree perineal laceration during delivery (principal); Z3A.37 37 weeks gestation of pregnancy
CPT/HCPCS: 36415; 80306; 85025; 86850; 86900; 86901; A9270; J7120

== ENCOUNTER 2021-11-02 21:10 | Emergency (ER) | payer OTHER ==
[2021-11-02 21:52] LABS: MUDS CUTOFF CONCENTRATIONS CUTOFF CONC BELOW:
[2021-11-02 21:54] LABS: BASOPHILS % (AUTO) 0.7 %; EOSINOPHILS % (AUTO) 0.5 %; HCT - HEMATOCRIT 39.1 % (37.0-47.0); HGB - HEMOGLOBIN 12.9 g/dL (12.0-16.0); LYMPHOCYTES # (AUTO) 1.8 10^3/uL (1.5-3.5); LYMPHOCYTES % (AUTO) 29.9 %; MEAN CORPUSCULAR HEMOGLOBIN 28.3 pg (27.0-31.0); MEAN CORPUSCULAR VOLUME 85.7 fL (81.0-99.0); MEAN PLATELET VOLUME 10.3 fL (7.9-10.8); MONOCYTES # (AUTO) 0.3 10^3/uL (0.0-1.0); NEUTROPHILS # (AUTO) 3.9 10^3/uL (1.5-6.6); NEUTROPHILS % (AUTO) 63.7 %; PLT - PLATELET COUNT 245 10^3/uL (130-450); RED BLOOD COUNT 4.56 10^6/uL (4.20-5.40); RED CELL DISTRIBUTION WIDTH 15.7 % (12.0-15.0); WHITE BLOOD COUNT 6.1 x10^3/uL (4.8-10.8)
[2021-11-02 22:05] LABS: BILIRUBIN,URINE NEGATIVE (NEGATIVE); CLARITY,URINE HAZY (CLEAR); GLUCOSE, URINE (UA) NEGATIVE (NEGATIVE); KETONES,URINE (UA) NEGATIVE (NEGATIVE); LEUKOCYTE ESTERASE, URINE NEGATIVE (NEGATIVE); NITRITE,URINE NEGATIVE (NEGATIVE); OCCULT BLOOD,URINE SMALL (NEGATIVE); PROTEIN,URINE NEGATIVE (NEGATIVE); UROBILINOGEN,URINE 0.2 (NORMAL) E.U./dL (NORMAL)
[2021-11-02 22:12] LABS: ACETAMINOPHEN < 10 ug/mL (10-30); ALBUMIN 4.3 g/dL (3.2-5.5); ALBUMIN/GLOBULIN RATIO 1.3 (1.0-2.2); ALKALINE PHOSPHATASE 50 IU/L (42-121); ALT ALANINE AMINOTRANSFERASE 16 IU/L (10-60); AST ASPARTATE AMINOTRANSFERASE 18 IU/L (10-42); BILIRUBIN,TOTAL 0.7 mg/dL (0.2-1.0); BUN - BLOOD UREA NITROGEN 13 mg/dL (6-20); CARBON DIOXIDE - CO2 24 mmol/L (21-32); CHLORIDE 106 mmol/L (101-111); CREATININE 0.7 mg/dL (0.4-1.0); ETOH - ETHANOL 7.3 mg/dL; GFR - MDRD 96 (>89); GLUCOSE 126 mg/dL (70-100); LIPASE 28 U/L (22-51); POTASSIUM 3.4 mmol/L (3.5-5.0); SALICYLATE < 6.0 mg/dL; SODIUM 139 mmol/L (135-145); TOTAL PROTEIN 7.6 g/dL (6.7-8.2)
--- NOTE | 2021-11-02 22:13 | ED Physician Documentation ---
PD HPI MHE - Stated complaint Stated Complaint: SI - Chief complaint Chief Complaint: MHE - History obtained from History obtained from: Family (Patient's ,Mynor) - Additional information Additional information: Patient is a 31-year-old female presenting for evaluation of self-harm and suicidal ideation. Patient appears withdrawn and is not wanting to answer questions so history was obtained from her Mynor. Per her , she was very sad all day. He left with the children to go grocery shopping in [place] and when she returned home she stated that she needed go to the [facility]. She had cut herself on the right wrist as well as admitted to drinking mouthwash and taking her Adderall. She does have a history of mental illness and was hospitalized almost a decade ago after attempting to harm herself. Per her , she is prescribed Adderall. She has recently become more paranoid toward her 14-year-old and her . Her mother is scheduled to come visit tomorrow and she has been concerned that this is due to her wanting to take the children away from her. She does have a history of alcohol abuse but has been sober for 2 years. She stopped all counseling a year ago. reports marital issues. Mynor - Phone number [phone]. He is planning on picking her mother up at the [place] tomorrow from 10 AM to 2 PM. Review of Systems Unable to obtain: Uncooperative PD PAST MEDICAL HISTORY - Past Medical History Respiratory: Asthma Endocrine/Autoimmune: None Psych: Bipolar disorder - Past Surgical History Past Surgical History: No - Present Medications Home Medications: Ambulatory Orders Medication Instructions Recorded Confirmed Dextroamphetamine/Amphetamine 20 mg 12/29/17 [Adderall 20 mg Tablet] - Allergies Allergies/Adverse Reactions: Allergies Allergy/AdvReac Type Severity Reaction Status Date / Time amoxicillin Allergy Anaphylaxis Verified 11/02/21 21:22 - Social History Does the pt smoke?: No Smoking Status: Never smoker Does the pt drink ETOH?: Yes Does the pt have substance abuse?: No - Immunizations Immunizations are current?: Yes - POLST Patient has POLST: No PD ED PE NORMAL - General General: No acute distress, Well developed/nourished, Other (Alert, We will make contact but does not want to answer questions) - HEENT HEENT: Atraumatic, PERRL, EOMI, Pharynx benign - Neck Neck: Supple, no meningeal sign - Cardiac Cardiac: Other (Tachycardic, regular rhythm) - Respiratory Respiratory: No respiratory distress, Clear bilaterally - Abdomen Abdomen: Normal bowel sounds, Soft, Non tender, Non distended - Derm Derm: Other (Superficial self-inflicted wounds to right wrist) - Extremities Extremities: Normal ROM s pain - Neuro Neuro: No motor deficit - Psych Psych: Normal mood. No: Normal affect (Withdrawn) Results - Vitals Vitals: Vital Signs - 24 hr 11/02/21 11/03/21 21:14 01:00 Temperature 36.4 C L Heart Rate 124 H 109 H Respiratory 18 18 Rate Blood Pressure 156/74 H 129/89 H O2 Saturation 100 98 Oxygen O2 Source Room air - EKG (time done) 2138 Rate: Rate (enter#) (105) Rhythm: Sinus tachycardia [place]: Normal Intervals: Other (QTC 443) Ischemia: No: ST elevation c/w ischemia - Labs Labs: Laboratory Tests 11/02/21 11/02/21 11/02/21 21:32 21:32 21:48 WBC 6.1 RBC 4.56 Hgb 12.9 Hct 39.1 MCV 85.7 MCH 28.3 MCHC 33.0 RDW 15.7 H Plt Count 245 MPV 10.3 Neut # (Auto) 3.9 Lymph # (Auto) 1.8 [place] # (Auto) 0.3 Eos # (Auto) 0.0 Baso # (Auto) 0.0 Absolute Nucleated RBC 0.00 Nucleated RBC % 0.0 Sodium Potassium Chloride Carbon Dioxide Anion Gap BUN Creatinine Estimated GFR (MDRD) Glucose Calcium Total Bilirubin AST ALT Alkaline Phosphatase Total Protein Albumin Globulin Albumin/Globulin Ratio Lipase TSH Urine Color YELLOW Urine Clarity HAZY Urine pH 6.0 Ur Specific [place] 1.025 Urine Protein NEGATIVE Urine Glucose (UA) NEGATIVE Urine Ketones NEGATIVE Urine Occult Blood SMALL H Urine Nitrite NEGATIVE Urine Bilirubin NEGATIVE Urine Urobilinogen 0.2 (NORMAL) Ur Leukocyte Esterase NEGATIVE Urine RBC 6-10 H Urine WBC 0-3 Ur Squamous Epith Cells FEW Squamous Urine Bacteria Few Urine Mucus Moderate Strands Ur Microscopic Review INDICATED Urine Culture Comments NOT INDICATED Urine HCG, Qual Salicylates Urine Opiates Screen NEGATIVE Ur Oxycodone Screen NEGATIVE Urine Methadone Screen NEGATIVE Ur Propoxyphene Screen NEGATIVE Acetaminophen Ur Barbiturates Screen NEGATIVE Ur Tricyclics Screen NEGATIVE Ur Phencyclidine Scrn NEGATIVE Ur Amphetamine Screen POSITIVE H U Methamphetamines Scrn NEGATIVE U Benzodiazepines Scrn NEGATIVE Urine Cocaine Screen NEGATIVE U Cannabinoids Screen NEGATIVE Ethyl Alcohol SARS-CoV-2 (PCR) NOT DETECTED 11/02/21 11/02/21 11/03/21 21:48 21:48 21:32 WBC RBC Hgb Hct MCV MCH MCHC RDW Plt Count MPV Neut # (Auto) Lymph # (Auto) [place] # (Auto) Eos # (Auto) Baso # (Auto) Absolute Nucleated RBC Nucleated RBC % Sodium 139 Potassium 3.4 L Chloride 106 Carbon Dioxide 24 Anion Gap 9.0 BUN 13 Creatinine 0.7 Estimated GFR (MDRD) 96 Glucose 126 H Calcium 9.0 Total Bilirubin 0.7 AST 18 ALT 16 Alkaline Phosphatase 50 Total Protein 7.6 Albumin 4.3 Globulin 3.3 Albumin/Globulin Ratio 1.3 Lipase 28 TSH 2.46 Urine Color Urine Clarity Urine pH Ur Specific [place] Urine Protein Urine Glucose (UA) Urine Ketones Urine Occult Blood Urine Nitrite Urine Bilirubin Urine Urobilinogen Ur Leukocyte Esterase Urine RBC Urine WBC Ur Squamous Epith Cells Urine Bacteria Urine Mucus Ur Microscopic Review Urine Culture Comments Urine HCG, Qual NEGATIVE Salicylates < 6.0 Urine Opiates Screen Ur Oxycodone Screen Urine Methadone Screen Ur Propoxyphene Screen Acetaminophen < 10 L Ur Barbiturates Screen Ur Tricyclics Screen Ur Phencyclidine Scrn Ur Amphetamine Screen U Methamphetamines Scrn U Benzodiazepines Scrn Urine Cocaine Screen U Cannabinoids Screen Ethyl Alcohol 7.3 SARS-CoV-2 (PCR) PD MEDICAL DECISION MAKING - ED course Complexity details: re-evaluated patient ED course: 0123 - Pt nodded head "yes" when asked if she wanted to be admitted to a psychiatric facility 0430 - Patient requested to ambulate to the bathroom. She was able to do so independently without assistance. She has been medically cleared.She remains voluntary wanting psychiatric placementFor her suicidal thoughts and behaviors. Patient will need a social work consult in the morning. Departure - Departure Clinical Impression: Suicidal ideation
[2021-11-02 22:17] LABS: BACTERIA,URINE Few /HPF (None Seen); MUCUS,URINE Moderate Strands; SQUAMOUS EPITHELIAL CELL,UR FEW Squamous (<= Few); WBC,URINE 0-3 /HPF (0-5)
[2021-11-02 22:18] LABS: AMPHETAMINE SCREEN,URINE POSITIVE (NEGATIVE); BARBITURATE SCREEN,UR NEGATIVE (NEGATIVE); BENZODIAZEPINES SCREEN, URINE NEGATIVE (NEGATIVE); COCAINE SCREEN URINE NEGATIVE (NEGATIVE); METHADONE SCREEN, URINE NEGATIVE (NEGATIVE); METHAMPHETAMINES SCREEN, URINE NEGATIVE (NEGATIVE); OPIATE SCREEN, URINE NEGATIVE (NEGATIVE); OXYCODONE SCREEN, URINE NEGATIVE (NEGATIVE); PROPOXYPHENE SCREEN, URINE NEGATIVE (NEGATIVE); THC CANNABINOID SCREEN, URINE NEGATIVE (NEGATIVE); TRICYCLIC ANTIDEPRESSANT,URINE NEGATIVE (NEGATIVE)
[2021-11-02] MEDS ORDERED: TETANUS/DIPHTHERIA/PERTUSSIS 0.5 ML SYRINGE IM ONE (23:08)
[2021-11-03 00:26] LABS: HCG UR QUAL NEGATIVE
--- NOTE | 2021-11-03 09:38 | ED Physician Documentation ---
ED Addendum - Addendum Addendum: 11/03/21 09:37 31-year-old Debbie Davila signed out to me by the Dr. Arshad is depressed with suicidal ideation related to her marriage and family. The patient apparently cut on her right wrist and took an overdose of Adderall with some mouth wash. She has been cleared medically and she is willing to cooperate with telepsych for recommendations. 11/03/21 16:17
--- NOTE | 2021-11-03 19:51 | ED Physician Documentation ---
ED Addendum - Addendum Addendum: 11/03/21 19:50 Patient calm and cooperative throughout my shift this evening. Seen by telemetry psychiatric safety and health consultant, who faxed his note to us. He recommends voluntary inpatient psychiatric admission, if patient becomes nonvoluntary recommend evaluation by the DCR. Recommends no specific medications at this juncture.
[2021-11-03] MEDS ORDERED: IBUPROFEN 600 MG TABLET PO STA (20:01)
[2021-11-04 09:25] VITALS: BP 106/69
--- NOTE | 2021-11-04 14:44 | ED Physician Documentation ---
ED Addendum - Addendum Addendum: 11/04/21 14:43 Patient without significant needs today is evaluated by the psych social worker and arrangements were made for transfer the patient to [facility] in [place]. She did have telepsych done who recommended inpatient services the patient is voluntary. Impression: depression with suicidal ideation. Plan: transfer to psychiatric hospital.
== END 2021-11-04 15:45 ==
LOC: ED 21:10
DX: R45.851 Suicidal ideations (principal); F32.A Depression, unspecified; Z23 Encounter for immunization; Z20.822 Contact with and (suspected) exposure to COVID-19; Z71.85 Encounter for immunization safety counseling
CPT/HCPCS: 36415; 80053; 80306; 80307; 80320; 80329; 81001; 81025; 83690; 84443; 85025; 87635; 90471; 90715; 90834; 93005; 99285; A9270; Q3014; 81003; 87086